=== PATIENT | male | born 1940 | race Caucasian/White ===

== ENCOUNTER → 2017-10-17 | Day surgery (SDC) | payer OTHER ==
[2017-10-04 15:43] LABS: HEMATOCRIT 47.1 % (42-52); HEMOGLOBIN 16.4 g/dL (14.0-18.0); MEAN CELL VOLUME 92.2 fL (80-100); MEAN CORPUSCULAR HEMOGLOBIN 32.1 pg (25-34); MEAN CORPUSCULAR HGB CONC 34.8 g/dl (32-36); MEAN PLATELET VOLUME 9.3 fL (7.4-10.4); PLATELET COUNT 197 K/uL (130-400); RED CELL DISTRIBUTION WIDTH CV 13.4 % (11.5-14.5); RED CELL DISTRIBUTION WIDTH SD 45.1 fL (36.4-46.3)
[2017-10-06 13:14] VITALS: Ht 179.1 cm; Wt 104.5 kg
[~2017-10-17] VITALS: Ht 179.1 cm; Wt 104.5 kg
[~2017-10-17] MED LIST: ATROPINE SULFATE 0.1 MG/ML 5ML SYR IV PRN; BUPIVACAINE 0.25% 30 ML VIAL ONE; CEFAZOLIN 2000MG IV PUSH 15 ML IV SCH; CEFTRIAXONE SOD 1 GM VIAL ONE; CEFTRIAXONE SOD 2 GM VIAL IV ONE; DEXAMETHASONE SOD INJ 4 MG/ML VIAL ONE; EpHEDrine SULFATE INJ 50 MG/ML AMP IV PRN; EpHEDrine SULFATE INJ 50 MG/ML AMP ONE; EpINEphrine INJ 1MG/ML AMP 1 MG/ML AMP ONE; FENTANYL CITRATE INJ 50 MCG/1 ML 2 ML VIAL ONE; LACTATED RINGER'S 1000ML 1,000 ML IV SCH; LIDOCAINE HCL 2% 2 ML VIAL (20MG/ML) ONE; LOSA1TAB38 PO; MIDAZOLAM HCL 1 MG/ML 2ML VIAL ONE; OMEG10007 PO; ONDANSETRON INJ 2 MG/ML 2 ML VIAL IV PRN; ONDANSETRON INJ 2 MG/ML 2 ML VIAL ONE; OXYCODONE/ACETAMINOPHEN 5-325 TAB PO PRN; PROMETHAZINE HCL INJ 6.25 MG in SODIUM CHLORIDE 0.9% 50ML 50 ML IV PRN; PROPOFOL IV EMULSION 10 MG/ML 20 ML VIAL ONE; SODIUM CHLORIDE 0.9% 1000ML 1,000 ML IV SCH; ZCR10 PO
--- NOTE | 2017-10-17 06:47 | History & Physical Bridge Note ---
H&P Re-Evaluation Bridge Note: I have examined the patient, reviewed the History & Physical and in the interval since the performance of the History & Physical I have noted the following changes of clinical significance: consent obtained,stressed djd and need to be realistic.No changes noted
--- NOTE | 2017-10-17 06:49 | Discharge Instructions ---
Discharge Instructions Date of Service October 17, 2017. Visit Reason for Visit: Right Shoulder Rotator Cuff Tear,S46.021a,Z01.818 Discharge Discharge Diagnosis / Problem: same Discharge Goals Goal(s): Decrease discomfort, Improve function, Increase independence Medications Stopped Medications Name(s): na Restart Stopped Medication(s): use scripts as directed Activity Recommendations Activity Limitations: as noted below Lifting Limitations: until after follow-up appointment Exercise/Sports Limitations: until after follow-up appointment May Resume Sexual Activity: after follow-up appointment Shower/Bathe: keep incision dry Driving or Machine Use: Anesthesia . Post Anesthesia Instructions: If you have had General Anesthesia or IV Sedation: * Do not drive today. * Resume driving when surgeon permits. * Do not make important decisions or sign legal documents today. * Call surgeon for: 1. Temperature elevations greater than 101 degrees F. 2. Uncontrollable pain. 3. Excessive bleeding. 4. Persistent nausea and vomiting. 5. Medication intolerance (nausea, vomiting or rash). * For nausea and vomiting use only clear liquids such as: tea, soda, bouillon until nausea subsides, then gradually increase diet as tolerated. * If you have any concerns or questions, call your surgeon's office. If physician is unavailable and it is an emergency, call 911 or go to the nearest emergency room. . Diet Recommendations Recommended Home Diet: resume previous diet Procedures Procedures Performed: see op note Pending Studies Studies pending at discharge: no Medical Emergencies . Who to Call and When: Medical Emergencies: If at any time you feel your situation is an emergency, please call 911 immediately. . Non-Emergent Contact Non-Emergency issues call your: Specialist Call Non-Emergent contact if: temperature is above 101.5, wound has increased drainage, wound has increased redness, wound has increased pain . . "Provider Documentation" section prepared by Anupam Bell. .
--- NOTE | 2017-10-17 09:07 | [facility] Post Operative Brief Note ---
Immediate Operative Summary Operative Date October 17, 2017. Pre-Operative Diagnosis Right shoulder rotator cuff tear Post-Operative Diagnosis Same as preop Procedure(s) Performed Right Shoulder Arthroscopic revision Rotator Cuff Repair, Subacromial Decompression, Biceps Tenotomy/EUD/Extensive debridement Surgeon Dr. Bell Marketing Sales Supervisor Surgeon(s) Ramo Hansen PA-C Estimated Blood Loss trace Findings Consistent with Post-Op Diagnosis Fluids (cc crystalloids) 800cc Specimens None Drains None Anesthesia Type General Regional Complication(s) none Disposition Accompanied Pt To Recovery: no Disposition: Recovery Room / PACU
--- NOTE | 2017-10-17 09:29 | [facility] Operative Report ---
Operative Report Operative Date October 17, 2017. Pre-Operative Diagnosis Right shoulder rotator cuff tear Post-Operative Diagnosis Right shoulder same as preop Procedure(s) Performed Right Shoulder Arthroscopic revision Rotator Cuff Repair, Subacromial Decompression, Biceps Tenotomy/EUD/Extensive debridement Surgeon Dr. Bell Fork Lift Mechanic Surgeon(s) Ramo Hansen PA-C Estimated Blood Loss trace Findings Right shoulder rotator cuff tear, subacromial impingement, biceps tendinopa Fluids 800cc Specimens None Drains None Anesthesia Type General Regional Complication(s) none Disposition no Recovery Room / PACU Indications This 76-year-old white male presented to the office with complaints of intractable right shoulder pain. He had tried conservative care measures without success. He elected to proceed with surgical intervention after being educated about potential risks and outcomes. Preoperative imaging has been obtained. Description of Procedure Patient was administered a regional block and then taken to the operating room where he was given general anesthesia. He was prepped and draped in usual sterile fashion. Please see Dr. Bell's operative report for specifics of the procedure. I was present for the entire case from initial patient positioning through final wound closure. Assistance was provided in patient positioning, arthroscopy, hardware placement, and final wound closure. Patient was taken to the recovery room in satisfactory condition. I attest to the content of the Intraoperative Record and any orders documented therein. Any exceptions are noted below.
[2017-10-17] MEDS: FENTANYL CITRATE INJ 50 MCG/1 ML 2 ML VIAL IV PRN ×2 (09:42→10:10)
--- NOTE | 2017-10-17 10:18 | OPERATIVE REPORT ---
DATE OF OPERATION: 10/17/2017 SURGEON: Anupam Bell MD ROUSTABOUT CREW: Ramo Hansen PA-C. No resident or fellow available. PREOPERATIVE DIAGNOSES: Recurrent rotator cuff tear with tendinopathy, biceps tendinopathy and tearing, degenerative disease, and impingement syndrome. POSTOPERATIVE DIAGNOSES: Recurrent rotator cuff tear with tendinopathy, biceps tendinopathy and tearing, degenerative disease, and impingement syndrome. OPERATION PERFORMED: 1. Exam under anesthesia. 2. Diagnostic arthroscopy. 3. Arthroscopic biceps tenotomy. 4. Arthroscopic extensive debridement of glenohumeral joint. 5. Arthroscopic revision, rotator cuff repair, 2 cm. 6. Subacromial decompression. PERIOPERATIVE SITUATION: A medically cleared male with intractable shoulder pain. Physical exam, x-ray, and MRI scan were consistent with the above diagnoses. He was advised of the concerning risks due to the fact that this is a revision and he may ultimately need reconstruction of the superior capsule. He understood this. He also understood that this was not guaranteed and this would eliminate his symptoms and needed to be realistic about his physical activity. PROCEDURE IN DETAIL: The patient was appropriately identified, site verified, consent verified, 2 g of Ancef confirmed as being given. The shoulder was examined revealing no instability. There was no major loss of motion. He was then placed in a beach chair position. The right upper extremity was prepped and draped in usual routine fashion. A posterolateral portal was made 2 cm medial and inferior posterolateral tip of the acromion and anterior portal made just off the edge AC joint. The joint was entered without difficulty. There was extensive synovitis intraarticularly. This was all debrided. There was a large labral tear superiorly with a large split, biceps long head with marked mucoid degeneration. This was debrided. The subscapular bulk was intact. The glenohumeral joint revealed relatively healthy glenoid, some humeral head changes, grade 2-3 changes. This was all debrided. There was a large PASTA lesion which was debrided and then marked. Then, the subacromial space was entered and the area of the tear and the supraspinatus PASTA lesion was identified and easily debrided to a full-thickness tear with marked mucoid degeneration that ended up being roughly 2 cm in size. The area was then taken down to a bleeding bone with shaving, it was repaired at the articular margin with 4 loop sutures that were crossed in a crisscross pattern, 2 placed anteriorly, 2 placed posteriorly with 4.75 anchors with excellent purchase of the anchors. The rotator cuff had good fixation to the bone with motion of the arm. There was no retraction. The subacromial space was then debrided of all of its bursa. The frayed CA ligament was released. The lateral margin of the acromion burred down with the shaver and then the anterior margin lightly burred down. The AC joint was left alone. The procedure was then terminated. Instruments and fluid removed. The portals were closed with 3-0 nylon, dressed with Xeroform, 4 x 4 gauze, ABD pads, and Ioban dressing. Overall prognosis for the shoulder is guarded based on the tendinopathy, recurrent tear, and activity expectations of the patient. He was advised of this. I attest to the content of the Intraoperative Record and any orders documented therein. Any exceptions are noted below. ELLA
[2017-10-17 10:23] VITALS: TEMP 36.1
[2017-10-17 11:38] VITALS: BP 147/84; PULSE 65; O2SAT 97
--- NOTE | 2017-10-17 12:01 | Anesthesia Progress Nt - [facility] ---
Anesthesia Post Op Note Date & Time October 17, 2017 at 11:49 Vital Signs Pain Intensity: 6 Vital Signs Past 12 Hours Date Time Temp Pulse Resp B/P (MAP) Pulse Ox O2 Delivery O2 Flow Rate FiO2 10/17/17 10:43 63 16 132/78 (96) 94 Room Air 10/17/17 10:36 140/68 10/17/17 10:35 65 18 10/17/17 10:35 70 18 88 10/17/17 10:31 83/57 10/17/17 10:30 63 10 10/17/17 10:30 63 10 10/17/17 10:29 65 22 90 10/17/17 10:29 65 22 10/17/17 10:26 136/79 10/17/17 10:24 65 20 10/17/17 10:24 66 20 91 10/17/17 10:23 36.1 64 15 136/79 93 Room Air 10/17/17 10:21 120/70 10/17/17 10:19 63 18 10/17/17 10:19 63 18 96 10/17/17 10:16 134/71 10/17/17 10:14 67 21 93 10/17/17 10:14 67 21 10/17/17 10:11 134/73 10/17/17 10:09 66 17 95 10/17/17 10:09 67 17 10/17/17 10:06 127/81 10/17/17 10:04 64 19 10/17/17 10:04 64 19 97 10/17/17 10:01 131/69 10/17/17 09:59 64 18 97 10/17/17 09:59 61 18 10/17/17 09:56 137/73 10/17/17 09:54 66 18 10/17/17 09:54 67 18 97 10/17/17 09:51 113/71 10/17/17 09:49 63 16 97 10/17/17 09:49 63 16 10/17/17 09:46 147/58 10/17/17 09:44 65 26 97 10/17/17 09:44 66 26 10/17/17 09:43 64 18 10/17/17 09:43 67 18 97 10/17/17 09:42 130/63 10/17/17 09:38 68 22 10/17/17 09:38 67 22 96 5/1/18 09:36 135/77 10/17/17 09:33 69 20 93 10/17/17 09:33 69 20 10/17/17 09:31 138/73 10/17/17 09:28 70 17 10/17/17 09:28 71 17 97 10/17/17 09:26 131/72 10/17/17 09:23 66 17 10/17/17 09:23 66 17 96 10/17/17 09:20 116/62 10/17/17 09:19 36.1 66 16 116/62 96 Mask 6 10/17/17 08:07 0 10/17/17 08:05 127/ 10/17/17 08:02 61 10/17/17 08:02 61 20 98 10/17/17 08:01 142/85 10/17/17 07:57 68 35 99 10/17/17 07:57 68 10/17/17 07:56 147/91 10/17/17 07:55 144/90 10/17/17 07:52 57 0 10/17/17 07:47 59 0 10/17/17 07:42 60 0 10/17/17 07:37 58 0 10/17/17 07:32 56 0 10/17/17 07:27 56 0 10/17/17 07:22 58 0 10/17/17 07:17 56 0 10/17/17 07:12 59 0 10/17/17 06:38 36.6 65 20 173/90 (117) 99 Room Air Notes Mental Status: alert / awake / arousable, participated in evaluation Pt Amnestic to Procedure: Yes Nausea / Vomiting: adequately controlled Pain: adequately controlled Airway Patency, RR, SpO2: stable & adequate BP & HR: stable & adequate Hydration State: stable & adequate Anesthetic Complications: no major complications apparent Pt is c/o pain on the right anterior side of the neck above the clavicle. Pt described the pain as dull and constant. Percocet did not relieve the pain much. Neck palpated, no obvious bruising, hematoma or swelling noted. Pt has good ROM of neck. Denied having any dysphagia, SOB, trouble breathing. No krystle 's syndrome noted. VSS. Offered to give patient a different kind of IV pain medication to help with pain but patient declined and opted to go home. Discussed with patient and his about worsening of symptoms such as swelling , trouble swallowing, shortness of breath, etc and to go to the ED if pt develops any worsening symptoms later. Pt and understood and agreed with plan.
== END | disposition home or self-care (01) ==
LOC: X.SURG 06:21
PROVIDERS: ATTEND Physical Medicine & Rehabilitation Sports Medicine
DX: S46.011A Strain of muscle(s) and tendon(s) of the rotator cuff of right shoulder, initial encounter (principal); M75.21 Bicipital tendinitis, right shoulder; M75.41 Impingement syndrome of right shoulder; M19.011 Primary osteoarthritis, right shoulder; X58.XXXA Exposure to other specified factors, initial encounter; E66.9 Obesity, unspecified; Z88.6 Allergy status to analgesic agent; I10 Essential (primary) hypertension; E78.00 Pure hypercholesterolemia, unspecified; Z79.899 Other long term (current) drug therapy; Z68.32 Body mass index [BMI] 32.0-32.9, adult; Z98.890 Other specified postprocedural states

== ENCOUNTER → 2018-01-29 | Outpatient (CLI) | payer OTHER ==
[~2018-01-29] MED LIST changes: -ATROPINE SULFATE 0.1 MG/ML 5ML SYR IV PRN; -BUPIVACAINE 0.25% 30 ML VIAL ONE; -CEFAZOLIN 2000MG IV PUSH 15 ML IV SCH; -CEFTRIAXONE SOD 1 GM VIAL ONE; -CEFTRIAXONE SOD 2 GM VIAL IV ONE; -DEXAMETHASONE SOD INJ 4 MG/ML VIAL ONE; -EpHEDrine SULFATE INJ 50 MG/ML AMP IV PRN; -EpHEDrine SULFATE INJ 50 MG/ML AMP ONE; -EpINEphrine INJ 1MG/ML AMP 1 MG/ML AMP ONE; -FENTANYL CITRATE INJ 50 MCG/1 ML 2 ML VIAL ONE; -LACTATED RINGER'S 1000ML 1,000 ML IV SCH; -LIDOCAINE HCL 2% 2 ML VIAL (20MG/ML) ONE; -MIDAZOLAM HCL 1 MG/ML 2ML VIAL ONE; -ONDANSETRON INJ 2 MG/ML 2 ML VIAL IV PRN; -ONDANSETRON INJ 2 MG/ML 2 ML VIAL ONE; -OXYCODONE/ACETAMINOPHEN 5-325 TAB PO PRN; -PROMETHAZINE HCL INJ 6.25 MG in SODIUM CHLORIDE 0.9% 50ML 50 ML IV PRN; -PROPOFOL IV EMULSION 10 MG/ML 20 ML VIAL ONE; -SODIUM CHLORIDE 0.9% 1000ML 1,000 ML IV SCH
== END | disposition home or self-care (01) ==
LOC: C.RDSM 12:40
PROVIDERS: ATTEND Physical Medicine & Rehabilitation Sports Medicine
DX: M75.101 Unspecified rotator cuff tear or rupture of right shoulder, not specified as traumatic (principal)